=== PATIENT | female | born 1950 | race American Indian/Alaskan Native ===

== ENCOUNTER 2017-03-14 19:26 | Emergency (ER) | payer MEDICARE ==
[2017-03-14 19:41] VITALS: BP 166/77
[2017-03-14 19:58] LABS: Basophils % (Auto) 0.8 % (0.0-1.8); Eosinophils % (Auto) 0.7 % (0.0-4.3); Hematocrit 43.5 % (30.3-42.9); Hemoglobin 14.4 gm/dl (10.1-14.3); Mean Corpuscular HGB Conc 33 % (30-34); Mean Corpuscular Hemoglobin 29 pg (28-32); Mean Corpuscular Volume 86 fl (79-97); Platelet Count 171 K/mm3 (140-440); Red Blood Count 5.03 M/mm3 (3.65-5.03); Red Cell Distribution Width 14.8 % (13.2-15.2); White Blood Count 6.3 K/mm3 (4.5-11.0)
[2017-03-14 20:08] LABS: INR 1.12 (0.87-1.13)
[2017-03-14 20:09] LABS: Partial Thromboplastin Time 32.8 Sec. (24.2-36.6)
[2017-03-14 20:17] LABS: Anion Gap 18 mmol/L; BUN/Creatinine Ratio 7.14; Blood Urea Nitrogen 5 mg/dL (7-17); Calcium 9.4 mg/dL (8.4-10.2); Carbon Dioxide 26 mmol/L (22-30); Chloride 103.3 mmol/L (98-107); Glucose 98 mg/dL (65-100); Potassium 3.8 mmol/L (3.6-5.0); Sodium 143 mmol/L (137-145)
--- NOTE | 2017-03-16 00:17 | ED Elopement Review ---
ED Pt Elopement review - Results review Lab results: Laboratory Tests 03/14/17 03/14/17 03/14/17 19:47 19:47 19:47 WBC 6.3 RBC 5.03 Hgb 14.4 H Hct 43.5 H MCV 86 MCH 29 MCHC 33 RDW 14.8 Plt Count 171 Lymph % (Auto) 51.5 H Hendry % (Auto) 7.1 Eos % (Auto) 0.7 Baso % (Auto) 0.8 Lymph # 3.2 Hendry # 0.5 Eos # 0.0 Baso # 0.1 Seg Neutrophils % 39.9 L Seg Neutrophils # 2.5 PT 14.3 INR 1.12 APTT 32.8 Sodium 143 Potassium 3.8 Chloride 103.3 Carbon Dioxide 26 Anion Gap 18 BUN 5 L Creatinine 0.7 Estimated GFR > 60 BUN/Creatinine Ratio 7.14 Glucose 98 Calcium 9.4 Troponin T < 0.010 03/15/17 03/15/17 00:04 02:26 WBC RBC Hgb Hct MCV MCH MCHC RDW Plt Count Lymph % (Auto) Hendry % (Auto) Eos % (Auto) Baso % (Auto) Lymph # Hendry # Eos # Baso # Seg Neutrophils % Seg Neutrophils # PT INR APTT Sodium Potassium Chloride Carbon Dioxide Anion Gap BUN Creatinine Estimated GFR BUN/Creatinine Ratio Glucose Calcium Troponin T < 0.010 < 0.010 - Call Back decision Pt Call Back Decision: No action required
== END 2017-03-15 04:00 | disposition left against medical advice (07) ==
LOC: ED 19:26
DX: R07.9 Chest pain, unspecified (principal); Z53.21 Procedure and treatment not carried out due to patient leaving prior to being seen by health care provider
CPT/HCPCS: 36415; 80048; 84484; 85025; 85610; 85730; 93005; 93010